=== PATIENT | female | born 1965 | race Caucasian/White ===

== ENCOUNTER 2016-07-21 05:08 | Emergency (ER) | payer OTHER | END 2016-07-21 09:55 | disposition home or self-care (01) | LOC: ER1 05:08 | DX: M25.552 Pain in left hip (principal); M79.652 Pain in left thigh; F17.210 Nicotine dependence, cigarettes, uncomplicated; Z88.2 Allergy status to sulfonamides | CPT/HCPCS: 73502; 73564; 96372; 99283; J1885 ==

== ENCOUNTER → 2020-10-24 | Outpatient (CLI) | payer OTHER ==
[2020-10-24 13:43] LABS: BUN/CREATININE RATIO 31 (0-10)
[2020-10-25 07:11] LABS: CANCER ANTIGEN (CA) 125 7.3 U/mL (0.0-38.1); CEA 5.8 ng/mL (0.0-4.7)
[2020-10-25 10:14] LABS: INSULIN 12.4 uIU/mL (2.6-24.9)
== END ==
LOC: LAB 10:09
PROVIDERS: Nurse Practitioner Family
DX: R05 Cough (principal); M32.9 Systemic lupus erythematosus, unspecified; K55.9 Vascular disorder of intestine, unspecified; F32.89 Other specified depressive episodes; F43.22 Adjustment disorder with anxiety; K21.9 Gastro-esophageal reflux disease without esophagitis; M25.252 Flail joint, left hip; K44.9 Diaphragmatic hernia without obstruction or gangrene
CPT/HCPCS: 36415; 71046; 80053; 80061; 82150; 82378; 82652; 83036; 83690; 84443; 85652; 86140; 86160; 86225; 86304

== ENCOUNTER → 2021-02-28 | Outpatient (CLI) | payer OTHER | LOC: HEART 5 13:48 | DX: R05.9 Cough, unspecified (principal); R53.83 Other fatigue; R06.02 Shortness of breath | CPT/HCPCS: 94060; 94729 ==

== ENCOUNTER → 2021-03-21 | Outpatient (CLI) | payer OTHER | LOC: HEART 5 11:13 | DX: I08.3 Combined rheumatic disorders of mitral, aortic and tricuspid valves (principal); R91.8 Other nonspecific abnormal finding of lung field | CPT/HCPCS: 71046; 93306 ==

== ENCOUNTER 2021-04-08 17:16 | Emergency (ER) | payer OTHER ==
[2021-04-08 19:04] LABS: HEMOGLOBIN 7.7 gm/dl (12.3-15.3); RED BLOOD COUNT 4.21 M/UL (4.00-5.10); WHITE BLOOD COUNT 9.8 K/UL (4.5-11.0)
[2021-04-08 19:22] LABS: BUN/CREATININE RATIO 29 (0-10)
[2021-04-08] MEDS ORDERED: IRON325 M1 PO (21:18)
== END 2021-04-08 21:50 | disposition home or self-care (01) ==
LOC: ER1 17:16
PROVIDERS: Family Medicine
DX: D50.9 Iron deficiency anemia, unspecified (principal); F17.210 Nicotine dependence, cigarettes, uncomplicated; Z88.2 Allergy status to sulfonamides
CPT/HCPCS: 80053; 82378; 82607; 82746; 83540; 83550; 85025; 85045; 85610; 99284